=== PATIENT | female | born 1995 | race African-American/Black ===

== ENCOUNTER 2018-10-02 19:42 | Emergency (ER) | payer SELFPAY ==
[2018-10-02 19:57] VITALS: BP 116/73
[2018-10-02] MEDS ORDERED: DIPHENHYDRAMINE HCL 25 MG CAPSULE PO ONE (20:38)
--- NOTE | 2018-10-02 20:43 | ER Document Report ---
ED Medical Screen (RME) - General Chief Complaint: Flank Pain Stated Complaint: ABDOMINAL PAIN Time Seen by Provider: 10/02/18 20:32 Mode of Arrival: Ambulatory Information source: Patient Notes: 23-year-old female presented to ED for complaint of bilateral flank pain and pelvic pain. She states she came in by EMS and while in the EMS they gave her Toradol and fentanyl. She states now she has got severe itching to bilateral arms chest and back. She does have severe psoriasis and eczema to the both arms abdomen and chest. There is no way to see any hives at this time. She states she no longer has any pain or in her flanks back abdomen or pelvis. She states she is not burning with urination anymore but she does have frequent urination. She states she does smoke 3-4 cigarettes a day drinks socially and does smoke pot. He has been treated with 25 mg of Benadryl until we get the urine back. I have greeted and performed a rapid initial assessment of this patient. A comprehensive ED assessment and evaluation of the patient, analysis of test results and completion of medical decision making process will be conducted by an additional ED providers. TRAVEL OUTSIDE OF THE [place] IN LAST 30 DAYS: No Physical Exam - Vital signs Vitals: Temp Pulse Resp BP Pulse Ox 97.1 F 80 16 116/73 100 10/02/18 19:47 10/02/18 19:47 10/02/18 19:47 10/02/18 19:47 10/02/18 19:47 Course - Vital Signs Vital signs: Temp Pulse Resp BP Pulse Ox 97.1 F 80 16 116/73 100 10/02/18 19:47 10/02/18 19:47 10/02/18 19:47 10/02/18 19:47 10/02/18 19:47
[2018-10-02] MEDS ORDERED: FAMOTIDINE 20 MG TABLET PO ONE (21:06)
[2018-10-02 21:54] LABS: ABSOLUTE EOSINOPHILS # (AUTO) 0.9 10^3/uL (0.0-0.6); ABSOLUTE MONOCYTES (AUTO) 0.8 10^3/uL (0.1-1.4); ABSOLUTE NEUT (AUTO) 10.2 10^3/uL (1.7-8.2); BASOPHILS % (AUTO) 0.3 % (0-2); EOSINOPHILS % (AUTO) 6.6 % (0-6); HEMATOCRIT 39.1 % (36.0-47.0); HEMOGLOBIN 12.8 g/dL (12.0-15.5); LYMPHOCYTES % (AUTO) 14.4 % (13-45); MEAN CORPUSCULAR HEMOGLOBIN 27.7 pg (27.0-33.4); MEAN CORPUSCULAR HGB CONC 32.8 g/dL (32.0-36.0); MEAN CORPUSCULAR VOLUME 84 fl (80-97); MONOCYTES % (AUTO) 5.6 % (3-13); PLATELET COUNT 282 10^3/uL (150-450); RED BLOOD COUNT 4.63 10^6/uL (3.72-5.28); RED CELL DISTRIBUTION WIDTH 14.2 % (11.5-14.0); SEGMENTED NEUTROPHILS % (AUTO) 73.1 % (42-78); TOTAL CELLS COUNTED % (AUTO) 100 %
[2018-10-02 22:04] LABS: APPEARANCE,URINE TURBID; BILIRUBIN,URINE NEGATIVE (NEGATIVE); COLOR,URINE YELLOW; GLUCOSE, URINE NEGATIVE (NEGATIVE); KETONES,URINE NEGATIVE (NEGATIVE); LEUKOCYTE ESTERASE,URINE LARGE (NEGATIVE); NITRITE,URINE NEGATIVE (NEGATIVE); PROTEIN,URINE 100 mg/dL (NEGATIVE); UROBILINOGEN,URINE NEGATIVE mg/dL (<2.0)
[2018-10-02 22:14] LABS: ALANINE AMINOTRANSFERASE 22 U/L (9-52); ALBUMIN 4.1 g/dL (3.5-5.0); ALKALINE PHOSPHATASE 53 U/L (38-126); ANION GAP 9 (5-19); ASPARTATE AMINO TRANSFERASE 21 U/L (14-36); BILIRUBIN,DIRECT 0.2 mg/dL (0.0-0.4); BILIRUBIN,TOTAL 0.3 mg/dL (0.2-1.3); BLOOD UREA NITROGEN 16 mg/dL (7-20); CALCIUM 9.5 mg/dL (8.4-10.2); CARBON DIOXIDE 25 mmol/L (22-30); CHLORIDE 108 mmol/L (98-107); GLUCOSE 87 mg/dL (75-110); POTASSIUM 3.8 mmol/L (3.6-5.0); TOTAL PROTEIN 7.2 g/dL (6.3-8.2)
[2018-10-02] MEDS ORDERED: CEFTRIAXONE INJ 1000 MG VIAL IM ONE (23:49)
[2018-10-02] MEDS ORDERED: LIDOCAINE 1% INJ-PF (10 MG/ML) 30 ML SDV NEB ONE (23:49)
[2018-10-02] MEDS ORDERED: KETOROLAC TROMETHAMINE INJ/PF 30 MG/1 ML SDV IV ONE (23:52)
[2018-10-02] MEDS ORDERED: MORPHINE SULFATE 10 MG/ML INJ IV ONE (23:53)
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
[2018-10-03] MEDS ORDERED: CEPHALEXIN 500 MG CAPSULE PO ONE (00:21)
== END 2018-10-03 00:10 | disposition home or self-care (01) ==
LOC: ER 19:42
DX: N39.0 Urinary tract infection, site not specified (principal); R30.0 Dysuria; R30.9 Painful micturition, unspecified; R39.15 Urgency of urination; R35.0 Frequency of micturition; F17.200 Nicotine dependence, unspecified, uncomplicated
CPT/HCPCS: 99283; 36415; 87086; 85025; 81025; 87088; 80053; 81001; 87186; J3490; J2270; J0696